=== PATIENT | female | born 1960 | race Caucasian/White ===

== ENCOUNTER 2016-09-05 10:10 | Day surgery (SDC) | payer OTHER ==
[~2016-09-05 10:10] MED LIST: Lactated Ringers 1,000 ML IV SCH; Midazolam 1 MG/ML 2 ML SDV ONE; Propofol 200 MG/20 ML SDV ONE; fentaNYL 100 MCG/2 ML SDV ONE
--- NOTE | 2016-09-05 11:01 | PCM.PREANE ---
Preanesthetic Assessment - Anesthesia/Transfusion/Family Hx Anesthesia History: Prior Anesthesia Without Reaction Other Type of Anesthesia Reaction Comment: In past remember when awakening felt like fighting Transfusion History: No Prior Transfusion(s) - Physical Assessment O2 Sat by Pulse Oximetry: 98 Respiratory Rate: 16 Vital Signs: Last Vital Signs Temp 36.5 C 09/05/16 10:53 Pulse 73 09/05/16 10:53 Resp 16 09/05/16 10:53 BP 140/58 L 09/05/16 10:53 Pulse Ox 98 09/05/16 10:53 Height: 1.63 m Weight: 64.41 kg - Allergies Allergies/Adverse Reactions: Allergies Allergy/AdvReac Type Severity Reaction Status Date / Time No Known Allergies Allergy Verified 05/09/15 17:43 PreAnesthesia Questionnaire HEENT History: Reports: Other (see below) Other HEENT History: wears glasses/contacts Cardiovascular History: Reports: Other (see below) Other Cardiovascular History: hx: Chest pain the summer, was transported to [place], ruled out any cardiac issue, they felt it was due to anxiety. had superficial blood clot in leg after child Gastrointestinal History: Reports: Colon polyp (s/p polypectomy (tubulovilous adenoma with atypia) 1 1/[address] 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: Psychiatric History: Reports: Anxiety Endocrine/Metabolic History: Reports: Hypothyroidism Other Endocrine/Metabolic History: hypothyroidism Dermatologic History: Reports: Other (see below) Other Dermatologic History: Excision of area to Nose, - Past Surgical History Head Surgeries/Procedures: Reports: None Cardiovascular Surgical History: Reports: Other (see below) Other Cardiovascular Surgeries/Procedures: hx varicose vein ligation GI Surgical History: Reports: Appendectomy, Colonoscopy Dermatological Surgical History: Reports: Skin biopsy - SUBSTANCE USE Smoking Status *Q: Never Smoker Second Hand Smoke Exposure: No Recreational Drug Use History: No - HOME MEDS Home Medications: Home Meds Cholecalciferol (Vitamin D3) [Vitamin D3] 2,000 units PO DAILY 10/20/13 [History ] Levothyroxine 112 mcg PO ACBREAKFAST 10/20/13 [History] - CURRENT (IN HOUSE) MEDS Current Meds: Current Medications Lactated Ringer's (Ringers, Lactated) 1,000 mls @ 125 mls/hr IV ASDIRECTED VIKTOR Last Admin: 09/05/16 10:54 Dose: 125 mls/hr Discontinued Medications Fentanyl (Sublimaze) Confirm Administered Dose 100 mcg .ROUTE .STK-MED ONE Stop: 09/05/16 10:03 Lidocaine HCl (Xylocaine-Mpf 1%) Confirm Administered Dose 5 ml .ROUTE .STK-MED ONE Stop: 09/05/16 10:04 Midazolam HCl (Versed 1 Mg/Ml) Confirm Administered Dose 2 mg .ROUTE .STK-MED ONE Stop: 09/05/16 10:03 Propofol (Diprivan 20 Ml) Confirm Administered Dose 200 mg .ROUTE .STK-MED ONE Stop: 09/05/16 10:03 Preanesthetic Assessment - ANESTHESIA/TRANSFUSION/FAMILY HX Anesthesia/Transfusion History: No Prior Transfusion(s), Prior Anesthesia Type of Anesthesia Reaction: Denies: Allergy, Anesthesia Awareness, Excessive Somnolence, Excessive Nausea/Vomiting, Excessive Itching, Excessive Shivering, Malignant Hyperthermia, Malignant Hyperthermia, Family History, Pseudocholinesterase Deficiency, Pseudocholinesterase Deficiency, Family History of, Urinary Retention, Unknown, Other (see below) Other Type of Anesthesia Reaction Comment: In past remember when awakening felt like fighting Family History of Anesthesia Reaction: No Other Intubation History Comment: no known problems - REVIEW OF SYSTEMS Constitutional: Reports: no symptoms 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 Respiratory: Reports: no symptoms Cardiovascular: Reports: no symptoms Other: Reports: None - PHYSICAL ASSESSMENT O2 Sat by Pulse Oximetry: 98 RR: 16 Vital Signs: Last Vital Signs Temp 36.5 C 09/05/16 10:53 Pulse 73 09/05/16 10:53 Resp 16 09/05/16 10:53 BP 140/58 L 09/05/16 10:53 Pulse Ox 98 09/05/16 10:53 Height: 1.63 m Weight: 64.41 kg ASA Class: 2 Mental Status: Alert & Oriented x3 Airway Class: Mallampati = 2 Dentition: Reports: Normal Dentition Thyro-Mental Finger Breadths: 3 Mouth Opening Finger Breadths: 3 ROM/Head Extension: Full Respiratory Status: lungs clear to auscultation bilaterally Cardiovascular Status: regular rate & rhythm, normal S1, S2, no murmur, blood pressure WNL - ALLERGIES Allergies/Adverse Reactions: Allergies Allergy/AdvReac Type Severity Reaction Status Date / Time No Known Allergies Allergy Verified 05/09/15 17:43 - BLOOD Blood Available: No - ANESTHESIA PLAN Preop Beta Dimitri: No Anesthesia Type Planned: MAC - ACKNOWLEDGEMENTS Pt an Appropriate Candidate for the Planned Anesthesia: Yes Alternatives and Risks of Anesthesia Discussed w Pt/Guardian: Yes Pt/Guardian Understands and Agrees with Anesthesia Plan: Yes
--- NOTE | 2016-09-05 11:57 | PCM.OPNOTE ---
- General Post-Op/Procedure Note Date of Surgery/Procedure: 09/05/16 Operative Procedure(s): Colonoscopy Pre Op Diagnosis: Personal history of colon polyps. Post-Op Diagnosis: No evidence of neoplasia. Anesthesia Technique: MAC (ASA II) Primary Surgeon: Elpidio Kerns Condition: Good Free Text/Narrative:: Dictation [id number]
[2016-09-05] MEDS ORDERED: Lactated Ringers 1,000 ML IV SCH (12:00)
--- NOTE | 2016-09-05 12:26 | PCM.POSTAN ---
POST ANESTHESIA ASSESSMENT - MENTAL STATUS Mental Status: alert, oriented - RESPIRATORY Respiratory Status: respiratory rate WNL, airway patent, O2 saturation stable - CARDIOVASCULAR CV Status: pulse rate WNL, blood pressure stable - GASTROINTESTINAL GI Status: no symptoms - POST OP HYDRATION Hydration Status: adequate & stable - OBSERVATIONS Free Text/Narrative:: no anesthesia problems
[2016-09-05 12:37] VITALS: BP 116/64
--- NOTE | 2016-09-05 17:12 | OR ---
SURGEON: Elpidio Kerns M.D. DATE OF PROCEDURE: 09/05/2016 OPERATION PERFORMED: Colonoscopy. ANESTHESIA: MAC. ASA CLASSIFICATION: II. PREOPERATIVE DIAGNOSIS: Personal history of colon polyps. POSTOPERATIVE DIAGNOSIS: No evidence of neoplasia. DESCRIPTION OF PROCEDURE: The patient was taken to the endoscopy room and positioned on the endoscopy table in the left lateral decubitus position. Time-out was called for appropriate identification of patient and procedure. Monitored anesthesia care was provided. The colonoscope was inserted into the rectum and advanced with minimal difficulty to the cecum where the colonoscope was retroflexed to visualize the ascending colon from below. The cecum was identified by internal landmarks and external pressure. The colonoscope was then straightened and slowly withdrawn. The cecum, ascending colon, hepatic flexure, transverse colon, splenic flexure, descending colon, sigmoid colon, and rectum were very well visualized. No tumors, polyps, or diverticular changes were noted. There was no evidence of angiodysplasia. Once the colonoscope was withdrawn to the rectum, it was retroflexed to visualize the anal orifice from above. Again, no tumors or polyps were seen and there were no acute hemorrhoidal changes. The colonoscope was then straightened, the rectum aspirated, and the colonoscope removed. The patient tolerated the procedure well and was taken to recovery room in stable condition. RUBIN / ALINE /[id number]
== END 2016-09-05 13:20 | disposition home or self-care (01) ==
LOC: MW.SDS 10:10
PROVIDERS: ATTEND Surgery
PROC: 0DJD8ZZ Inspection of Lower Intestinal Tract, Via Natural or Artificial Opening Endoscopic (ICD-10-PCS; principal; 2016-09-05)
DX: Z09 Encounter for follow-up examination after completed treatment for conditions other than malignant neoplasm (principal); E05.40 Thyrotoxicosis factitia without thyrotoxic crisis or storm; E03.9 Hypothyroidism, unspecified; E55.9 Vitamin D deficiency, unspecified; Z86.010 Personal history of colon polyps; Z79.899 Other long term (current) drug therapy; Z90.49 Acquired absence of other specified parts of digestive tract
CPT/HCPCS: 45378; J2250; J3010; J7120; J2704

== ENCOUNTER 2020-07-24 03:53 | Emergency (ER) | payer OTHER ==
[2020-07-24 04:39] LABS: BLOOD UREA NITROGEN,BUN 18 mg/dL (7.0-18.0); CARBON DIOXIDE,CO2 26.4 mmol/L (21.0-32.0); CHLORIDE,CL 107 mmol/L (98-107); GLUCOSE RANDOM 130 mg/dL (74-106); SODIUM,NA 143 mmol/L (136-145)
--- NOTE | 2020-07-24 05:18 | CR ---
Indication: Syncope Technique: Chest 1 view Comparison: 01/04/2015 Findings/Impression: Cardiovascular and mediastinum: Normal cardiac size. Mild aortic arch calcifications. Lungs and pleural space: Mild hyperinflation. Correlate for COPD. Mildly increased interstitial markings which could be related to scarring. Correlate clinically to exclude a mild active interstitial process or mild bronchitis. No lobar consolidation or pleural effusions. No pneumothorax seen. Bones and soft tissues: No significant findings. Dictated by Kush Yang MD @ Jul 24 2020 5:14AM Signed by Dr. Kush Yang @ Jul 24 2020 5:17AM
--- NOTE | 2020-07-24 05:26 | CT ---
INDICATION: Injury TECHNIQUE: CT head without contrast. COMPARISON: None available FINDINGS: The ventricles and sulci are within normal limits for the patient`s age. There is no mass effect or midline shift. There is no loss of trevino-white differentiation. A small low-attenuation focus in the right frontal subcortical white matter could represent chronic small vessel ischemic change. There is no evidence of an acute intracranial hemorrhage. No acute calvarial fracture is seen. The visualized paranasal sinuses and mastoid air cells are clear. Post cataract surgery changes are seen. IMPRESSION: No evidence of an acute intracranial hemorrhage, mass effect or loss of trevino-white differentiation. Please note that all CT scans at this facility use dose modulation, iterative reconstruction, and/or weight-based dosing when appropriate to reduce radiation dose to as low as reasonably achievable. Dictated by Kush Yang MD @ Jul 24 2020 5:14AM Signed by Dr. Kush Yang @ Jul 24 2020 5:24AM
--- NOTE | 2020-07-24 05:34 | EDM.PDOC ---
<Sam Cantrell - Last Filed: 07/24/20 05:33> ED HPI GENERAL MEDICAL PROBLEM - General Chief Complaint: Cardiovascular Problem Stated Complaint: FELL AND HIT HEAD Time Seen by Provider: 07/24/20 04:00 - History of Present Illness INITIAL COMMENTS - FREE TEXT/NARRATIVE: CHIEF COMPLAINT(S): Possible syncope versus fall HISTORY OF PRESENT ILLNESS: This is a 59-year-old woman with a past medical history of hypothyroidism who comes to the emergency department with a chief complaint of possible syncope versus fall. Per report: The patient was found after they heard a thump on the ground. They stated that she did not have any shaking and that they brought her to the emergency department. The patient states that she does not recall what happened. She states that she was letting her elder dog down to go have some food and water. She states that she set her head on the corner of the door and remembers telling herself that she would close her eyes and wait. She states that the next thing she remembers is that she was on the ground. She states that she does have some head pain on the back of her head but denies any chest pain, shortness of breath, abdominal pain, nausea or vomiting. She denies any urinary incontinence and did not pee in herself and denies any tongue biting or blood in her mouth. She denies any tongue pain. She denies any history of seizures. She denies any history of syncope. She denies any history of CAD. She states that she believes she just fell asleep while standing because she is so tired and then fell accidentally. She denies any preceding chest pain or shortness of breath. She did not feel like she was going to pass out. She denies any drug ingestions or any other abnormalities. REVIEW OF SYSTEMS: Constitutional: Denies fever, chills. Eyes: Denies eye pain Ears, Nose, Mouth, & Throat: Denies earache Cardiovascular: Denies chest pain Respiratory: Denies shortness of breath Gastrointestinal: Denies Nausea, vomiting, diarrhea, hematochezia. Genitourinary: Denies hematuria Skin:Denies a rash Neurological: Positive for mild headache in the back. Denies blurred vision numbness, tingling, weakness Psychiatric: Denies depression PAST MEDICAL HISTORY: As per history of present illness and as reviewed below otherwise noncontributory. SURGICAL HISTORY: As per history of present illness and as reviewed below otherwise noncontributory. SOCIAL HISTORY: As per history of present illness and as reviewed below otherwise noncontributory. FAMILY HISTORY: As per history of present illness and as reviewed below otherwise noncontributory. EXAMINATION OF ORGAN SYSTEMS/BODY AREAS: Constitutional: Blood pressure is 136/77, heart rate 64, respiratory rate 18 with an oxygen saturation 97% on room air. Temperature 36.4 General: Overall well-appearing woman who is in no acute distress. Psychiatric: Appropriate mood and affect. Eyes: No scleral icterus or conjunctival erythema pupils were equal round reactive to light. Extraocular movements intact. No vertical or horizontal nystagmus. ENMT: Moist mucous membranes. No pharyngeal erythema no tongue biting or blood in the oropharynx. Cardiovascular: Regular, rate, and rhythm. No gallops, murmurs, or rubs. Bilateral upper extremity pulses symmetric and intact. No peripheral edema. No JVD. Respiratory: Lungs clear to auscultation bilaterally. No wheezes, rales, or rhonchi. Gastrointestinal: Soft, non-tender, non-distended. Normoactive bowel sounds Genitourinary: No suprapubic tenderness Musculoskeletal: Normal range of motion. Skin: No lesions or abrasions. Neurological: Alert, GCS 15 strength and sensation grossly intact in upper and lower extremities bilaterally. MEDICAL DECISION MAKING AND COURSE IN THE ED WITH INTERPRETATION/REVIEW OF DIAGNOSTIC STUDIES: This is a 59-year-old woman with a past medical history of hypothyroidism who comes to the emergency department with mild posterior head pain after a possible syncopal episode versus accidental fall. At this time an EKG was obtained which did not reveal any acute signs of ischemia. Will obtain CBC, CMP, lactic acid, troponin, free T4, TSH, serum alcohol. Will obtain a CT head without contrast and obtain a chest x-ray. The patient on cardiac monitoring and pulse oximetry we did obtain a [id number] glucose which was found to be normal. Laboratory: CBC is unremarkable. Lactic acid is 0.9. CMP reveals hyperglycemia at 130, [id number] glucose was 124 otherwise unremarkable. Troponin is negative. Free T4 is 1.42, TSH is 0.66. Serum alcohol is negative. Twelve-lead EKG interpreted by myself. Normal sinus rhythm at a rate of 63beats per minute. Normal axis. PA interval is 135 ms. QRS duration is [address] segments are normal without elevations or depressions. No Q waves present. Hypertrophy not noted. No changes demonstrated from prior EKG dated January 04, 2015. Interpretation: Normal sinus rhythm The radiological images were viewed by myself along with reading the report from the radiologist. Chest x-ray reveals mild hyperinflation with mildly increased interstitial markings which could be related due to scarring. Correlate clinically to exclude mild active interstitial process or mild bronchitis. CT head without contrast does not reveal any acute intracranial abnormality. After labs and imaging I did discuss the results with the patient. The patient currently denies any cough, shortness of breath, chest pain. The patient does not have any wheezing on examination therefore is uncertain as to why the patient has interstitial markings. I did discuss with her at this time that we would need a repeat troponin. Using shared decision making I did discuss her that if the second troponin is negative we could either admit her for syncopal work-up or have her follow-up outpatient for syncopal work-up given that she is low risk at that time other than her age. She elected for outpatient work-up if her second troponin is negative. In addition given the head injury I did discuss concussion precautions. DISPOSITION: The patient was signed out to oncoming day team physician pending repeat troponin CONDITION: Fair PROCEDURES: None FINAL IMPRESSION(S)/DIAGNOSES: 1. Acute closed head injury likely secondary to mechanical fall 2. Acute possible syncope Sam Cantrell M.D. - Related Data Allergies Allergy/AdvReac Type Severity Reaction Status Date / Time No Known Allergies Allergy Verified 07/24/20 04:04 Home Meds: Home Meds Cholecalciferol (Vitamin D3) [Vitamin D3] 2,000 units PO DAILY 10/20/13 [History] Levothyroxine 112 mcg PO ACBREAKFAST 10/20/13 [History] Past Medical History HEENT History: Reports: Other (See Below) Other HEENT History: wears glasses/contacts Cardiovascular History: Reports: Other (See Below) Other Cardiovascular History: hx: Chest pain the summer, was transported to [place], ruled out any cardiac issue, they felt it was due to anxiety. had superficial blood clot in leg after child Respiratory History: Reports: None Gastrointestinal History: Reports: Colon Polyp, Other (See Below) Other Gastrointestinal History: 'occasional heartburn' Genitourinary History: Reports: None REDYE HAND History: Reports: Musculoskeletal History: Reports: None Neurological History: Reports: None Psychiatric History: Reports: Anxiety Endocrine/Metabolic History: Reports: Hypothyroidism Other Endocrine/Metabolic History: hypothyroidism Insulin Pump Model and Drill Doctor: None Hematologic History: Reports: None Immunologic History: Reports: None Oncologic (Cancer) History: Reports: None Dermatologic History: Reports: Other (See Below) Other Dermatologic History: Excision of area to Nose, - Infectious Disease History Infectious Disease History: Reports: None - Past Surgical History Head Surgeries/Procedures: Reports: None Cardiovascular Surgical History: Reports: Other (See Below) Other Cardiovascular Surgeries/Procedures: hx varicose vein ligation GI Surgical History: Reports: Appendectomy, Colonoscopy Dermatological Surgical History: Reports: Skin Biopsy Social & Family History - Caffeine Use Caffeine Use: Reports: None - Recreational Drug Use Recreational Drug Use: No ED ROS GENERAL - Review of Systems Review Of Systems: See Below ED EXAM, GENERAL - Physical Exam Exam: See Below Departure - Departure Disposition: Home, Self-Care 01 Condition: Fair Clinical Impression: Closed head injury Qualifiers: Encounter type: initial encounter Qualified Code(s): S09.90XA - Unspecified injury of head, initial encounter Syncope Qualifiers: Syncope type: unspecified Qualified Code(s): R55 - Syncope and collapse - Discharge Information *PRESCRIPTION DRUG MONITORING PROGRAM REVIEWED*: No *COPY OF PRESCRIPTION DRUG MONITORING REPORT IN PATIENT SIRISHA: No Instructions: Head Injury, Adult, Dghg-[id number], Syncope, Ibzd-[id number] Referrals: Keo Francis MD [Physician] - 3 Days Julia Donaldson MD [Primary Care Provider] - 3 Days Forms: ED Department Discharge Additional Instructions: The need for follow-up, as well as the timing and circumstances, are variable depending upon the specifics of your emergency department visit. If you don't have a primary care physician on staff, we will provide you with a referral. We always advise you to contact your personal physician following an emergency department visit to inform them of the circumstance of the visit and for follow-up with them and/or the need for any referrals to a consulting specialist. The emergency department will also refer you to a specialist when appropriate. This referral assures that you have the opportunity for follow-up care with a specialist. All of these measure are taken in an effort to provide you with optimal care, which includes your follow-up. Under all circumstances we always encourage you to contact your private physician who remains a resource for coordinating your care. When calling for follow-up care, please make the office aware that this follow-up is from your recent emergency room visit. If for any reason you are refused follow-up, please contact the [facility] Emergency Department at and asked to speak to the emergency department charge nurse. If you do not have a primary care doctor, please follow up with the clinics below within 3-[address] [facility] [address] [place] [id number] [facility] [address] [place] [id number] Sepsis Event Note (ED) - Evaluation Sepsis Screening Result: No Definite Risk <Brad Thomason - Last Filed: 07/24/20 07:46> ED HPI GENERAL MEDICAL PROBLEM - General Source of Information: Reports: Patient Course - Vital Signs Last Recorded V/S: Last Vital Signs Temp 97.5 F 07/24/20 04:00 Pulse 72 07/24/20 05:58 Resp 18 07/24/20 05:58 BP 112/58 L 07/24/20 05:58 Pulse Ox 97 07/24/20 05:58 - Orders/Labs/Meds Orders: Active Orders 24 hr Category Date Time Status EKG Documentation Completion [RC] STAT Care 07/24/20 04:03 Active UA W/SILVIA RFLX IF INDICATED [URIN] Stat Lab 07/24/20 04:03 Ordered Labs: Laboratory Tests 07/24/20 07/24/20 07/24/20 Range/Units 04:02 04:04 04:04 WBC 5.26 (4.0-11.0) K/uL RBC 4.74 (4.30-5.90) M/uL Hgb 13.8 (12.0-16.0) g/dL Hct 41.4 (36.0-46.0) % MCV 87.3 (80.0-98.0) fL MCH 29.1 (27.0-32.0) pg MCHC 33.3 (31.0-37.0) g/dL RDW Std Deviation 41.9 (28.0-62.0) fl RDW Coeff of Veronika 13 (11.0-15.0) % Plt Count 217 (150-400) K/uL MPV 9.60 (7.40-12.00) fL Neut % (Auto) 46.6 L (48.0-80.0) % Lymph % (Auto) 40.1 H (16.0-40.0) % Howell % (Auto) 9.7 (0.0-15.0) % Eos % (Auto) 3.0 (0.0-7.0) % Baso % (Auto) 0.6 (0.0-1.5) % Neut # (Auto) 2.5 (1.4-5.7) K/uL Lymph # (Auto) 2.1 (0.6-2.4) K/uL Howell # (Auto) 0.5 (0.0-0.8) K/uL Eos # (Auto) 0.2 (0.0-0.7) K/uL Baso # (Auto) 0.0 (0.0-0.1) K/uL Nucleated RBC % 0.0 /100WBC Nucleated RBCs # 0 K/uL Lactate 0.9 (0.20-2.00) mmol/L Sodium (136-145) mmol/L Potassium (3.5-5.1) mmol/L Chloride (98-107) mmol/L Carbon Dioxide (21.0-32.0) mmol/L BUN (7.0-18.0) mg/dL Creatinine (0.6-1.0) mg/dL Est Cr Clr Drug Dosing mL/min Estimated GFR (MDRD) ml/min Glucose (74-106) mg/dL POC Glucose 124 H (60-110) mg/dL Calcium (8.5-10.1) mg/dL Magnesium (1.8-2.4) mg/dL Total Bilirubin (0.2-1.0) mg/dL AST (15-37) IU/L ALT (14-63) IU/L Alkaline Phosphatase (46-116) U/L Creatine Kinase (26-308) U/L Troponin I (0.000-0.056) ng/mL Total Protein (6.4-8.2) g/dL Albumin (3.4-5.0) g/dL Globulin (2.6-4.0) g/dL Albumin/Globulin Ratio (0.9-1.6) Free T4 (0.76-1.46) ng/dL TSH 3rd Generation (0.36-3.74) uIU/mL Ethyl Alcohol mg/dL 07/24/20 07/24/20 Range/Units 04:04 07:04 WBC (4.0-11.0) K/uL RBC (4.30-5.90) M/uL Hgb (12.0-16.0) g/dL Hct (36.0-46.0) % MCV (80.0-98.0) fL MCH (27.0-32.0) pg MCHC (31.0-37.0) g/dL RDW Std Deviation (28.0-62.0) fl RDW Coeff of Veronika (11.0-15.0) % Plt Count (150-400) K/uL MPV (7.40-12.00) fL Neut % (Auto) (48.0-80.0) % Lymph % (Auto) (16.0-40.0) % Howell % (Auto) (0.0-15.0) % Eos % (Auto) (0.0-7.0) % Baso % (Auto) (0.0-1.5) % Neut # (Auto) (1.4-5.7) K/uL Lymph # (Auto) (0.6-2.4) K/uL Howell # (Auto) (0.0-0.8) K/uL Eos # (Auto) (0.0-0.7) K/uL Baso # (Auto) (0.0-0.1) K/uL Nucleated RBC % /100WBC Nucleated RBCs # K/uL Lactate (0.20-2.00) mmol/L Sodium 143 (136-145) mmol/L Potassium 4.0 (3.5-5.1) mmol/L Chloride 107 (98-107) mmol/L Carbon Dioxide 26.4 (21.0-32.0) mmol/L BUN 18 (7.0-18.0) mg/dL Creatinine 0.9 (0.6-1.0) mg/dL Est Cr Clr Drug Dosing 57.35 mL/min Estimated GFR (MDRD) > 60.0 ml/min Glucose 130 H (74-106) mg/dL POC Glucose (60-110) mg/dL Calcium 9.8 (8.5-10.1) mg/dL Magnesium 2.2 (1.8-2.4) mg/dL Total Bilirubin 0.4 (0.2-1.0) mg/dL AST 23 (15-37) IU/L ALT 31 (14-63) IU/L Alkaline Phosphatase 50 (46-116) U/L Creatine Kinase 192 (26-308) U/L Troponin I < 0.050 < 0.050 (0.000-0.056) ng/mL Total Protein 6.4 (6.4-8.2) g/dL Albumin 3.6 (3.4-5.0) g/dL Globulin 2.8 (2.6-4.0) g/dL Albumin/Globulin Ratio 1.3 (0.9-1.6) Free T4 1.42 (0.76-1.46) ng/dL TSH 3rd Generation 0.66 (0.36-3.74) uIU/mL Ethyl Alcohol < 3.0 mg/dL - Re-Assessments/Exams Free Text/Narrative Re-Assessment/Exam: 07/24/20 07:00 She was signed out to me from Dr. Cantrell at this time. I promptly performed a detailed physical examination, my examination was performed after ED treatments were initiated by the signout provider. Patient has been under the care of the previous provider up until this point. 07/24/20 07:45 After extensive cardiac monitoring in the ER, she is currently stable for discharge. She had normal vital signs and has a normal gait on road test with no focal deficits. I advised the patient to return to the ER for reevaluation if symptoms worsened, including fever, worsening pain, or any other worrisome symptoms. I instructed the patient to follow up with their PCP and cardiology within 2-3 days. Departure - Departure Time of Disposition: 07:43 Condition: Good - Discharge Information *PRESCRIPTION DRUG MONITORING PROGRAM REVIEWED*: Not Applicable *COPY OF PRESCRIPTION DRUG MONITORING REPORT IN PATIENT SIRISHA: Not Applicable Sepsis Event Note (ED) - Focused Exam Vital Signs: Vital Signs Temp Pulse Resp BP Pulse Ox 07/24/20 05:58 72 18 112/58 L 97 07/24/20 04:00 97.5 F 64 18 136/77 97
[2020-07-24 07:56] VITALS: BP 102/55; PULSE 83
== END 2020-07-24 07:56 | disposition home or self-care (01) ==
LOC: MW.ED 03:53
DX: R55 Syncope and collapse (principal); S09.90XA Unspecified injury of head, initial encounter; E03.9 Hypothyroidism, unspecified; Z79.899 Other long term (current) drug therapy; W18.30XA Fall on same level, unspecified, initial encounter
CPT/HCPCS: 36415; 70450; 70450-26; 71045; 71045-26; 80053; 80179; 82550; 82962; 83605; 83735; 84439; 84443; 84484; 85025; 93005; 93010; 99284; 99284-25

== ENCOUNTER 2024-07-19 09:42 | Day surgery (SDC) | payer OTHER ==
[~2024-07-19 09:42] MED LIST changes: -Lactated Ringers 1,000 ML IV SCH; -Midazolam 1 MG/ML 2 ML SDV ONE; -Propofol 200 MG/20 ML SDV ONE; +Sodium Chloride 0.9% 10 ML Syringe FLUSH PRN; +Sodium Chloride 0.9% 2.5 ML Syringe FLUSH PRN; +Sodium Chloride 0.9% 20 ML SDV IV PRN; -fentaNYL 100 MCG/2 ML SDV ONE
[2024-07-19] MEDS: Lactated Ringers 1,000 ML IV SCH (10:36)
[2024-07-19] MEDS ORDERED: propofoL 500 MG/50 ML 50 ML ONE (11:31)
[2024-07-19] MEDS ORDERED: Lidocaine 2% 5 ML SDV ONE (11:31)
[2024-07-19 13:48] VITALS: BP 120/61; PULSE 66
== END 2024-07-19 13:14 | disposition home or self-care (01) ==
LOC: MW.SDS 09:42
PROVIDERS: ATTEND Surgery
DX: Z12.11 Encounter for screening for malignant neoplasm of colon (principal); E78.5 Hyperlipidemia, unspecified; E03.9 Hypothyroidism, unspecified; Z79.899 Other long term (current) drug therapy; Z79.890 Hormone replacement therapy; Z86.0100 Personal history of colon polyps, unspecified
CPT/HCPCS: 45378; J2704; J7120; J3490